=== PATIENT | female | born 1990 | race Caucasian/White ===

== ENCOUNTER 2021-10-22 09:11 | Outpatient (CLI) | payer BC | END 2021-10-22 09:12 | disposition home or self-care (01) | LOC: BICRAD 09:11 | PROVIDERS: ATTEND Specialist | DX: S63.602A Unspecified sprain of left thumb, initial encounter (principal) ==

== ENCOUNTER 2023-09-15 15:14 | Outpatient (CLI) | payer BC | END 2023-09-15 15:15 | disposition home or self-care (01) | LOC: BICRAD 15:14 | PROVIDERS: ATTEND Family Medicine | DX: J20.9 Acute bronchitis, unspecified (principal) | CPT/HCPCS: 71046 ==